=== PATIENT | male | born 1975 | race Caucasian/White ===

== ENCOUNTER 2016-12-18 01:17 | Emergency (ER) | payer BC ==
--- NOTE | 2016-12-24 07:41 | ER ---
ADMIT: 12/18/2016 RM/LOC: ER [facility] MR#: [id number] [address] [facility] [address], [place] [id number] DYLON EUCEDA [address] [place] [address] Emergency Room Report SEX: M AGE: 41 : 1975 DATE: 12/18/2016 TIME: 0117 hours. Please refer to my T-sheet for complete H and P. Briefly, the patient is a 41- year-old who comes in with left leg swollen and tender. 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 He does not smoke. 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 Rates it 5. He is just worried it could be a blood clot. PHYSICAL EXAMINATION: VITAL SIGNS: Vital signs stable. EXTREMITIES: His left lower extremity has a little bit of tenderness, slight swelling on the left. It is hard to tell if it is different from the right. He has no erythema, no redness. He is neurovascularly intact distally. EMERGENCY ROOM COURSE: Ultrasound was negative for DVT. I had a long discussion with him, he did not want anything specific for pain, and was ready for discharge. ASSESSMENT: Left leg pain with a history of DVT. No evidence on ultrasound. PLAN: Rest ice, elevate. Follow up with [facility], return if worse, and use Tylenol or Motrin, and take 81 mg aspirin a day. Keegan Becker MD/ foreign JOB #: [id number] CC: Keegan Becker MD, Attending Physician Emeka Head MD, Family Physician
== END 2016-12-18 03:15 | disposition home or self-care (01) ==
LOC: ER 01:17
DX: M79.662 Pain in left lower leg (principal); Z86.718 Personal history of other venous thrombosis and embolism; Z86.711 Personal history of pulmonary embolism; Z90.49 Acquired absence of other specified parts of digestive tract; Z88.0 Allergy status to penicillin; Z88.1 Allergy status to other antibiotic agents; Z79.82 Long term (current) use of aspirin